=== PATIENT | female | born 1980 | race Caucasian/White ===

== ENCOUNTER → 2018-02-14 | Outpatient (CLI) | payer BC | END | disposition home or self-care (01) | LOC: CFH 10:50 | PROVIDERS: ATTEND Surgery | DX: Z12.31 Encounter for screening mammogram for malignant neoplasm of breast (principal) | CPT/HCPCS: 77067 ==

== ENCOUNTER → 2019-02-17 | Outpatient (CLI) | payer BC | END | disposition home or self-care (01) | LOC: CFH 07:30 | PROVIDERS: ATTEND Surgery | DX: Z12.31 Encounter for screening mammogram for malignant neoplasm of breast (principal) | CPT/HCPCS: 77063; 77067 ==

== ENCOUNTER → 2019-09-08 | Outpatient (CLI) | payer BC ==
[~2019-09-08] MED LIST: GADOTERATE 5 MMOL/10 ML VIAL ONE
== END | disposition home or self-care (01) ==
LOC: CFH 14:26
PROVIDERS: ATTEND Surgery
DX: N63.11 Unspecified lump in the right breast, upper outer quadrant (principal); E03.9 Hypothyroidism, unspecified; I10 Essential (primary) hypertension
CPT/HCPCS: 77049; A9575; C8908

== ENCOUNTER → 2019-10-17 | Outpatient (CLI) | payer BC | END | disposition home or self-care (01) | LOC: CFH 15:08 | PROVIDERS: ATTEND Surgery | DX: N63.11 Unspecified lump in the right breast, upper outer quadrant (principal); N60.01 Solitary cyst of right breast; Z85.850 Personal history of malignant neoplasm of thyroid; Z85.3 Personal history of malignant neoplasm of breast | CPT/HCPCS: 76642 ==

== ENCOUNTER → 2019-12-11 | Outpatient (CLI) | payer BC ==
[~2019-12-11] MED LIST changes: -GADOTERATE 5 MMOL/10 ML VIAL ONE; +LIDOCAINE 1%, 20ML ONE; +LIDOCAINE 1%-EPI 1:100K, 20ML ONE; +SODIUM BICARBONATE 4.2%, 5ML ONE
== END | disposition home or self-care (01) ==
LOC: CFH 10:37
PROVIDERS: ATTEND Surgery
DX: N63.11 Unspecified lump in the right breast, upper outer quadrant (principal); D24.1 Benign neoplasm of right breast
CPT/HCPCS: 19083; 88305; J3490

== ENCOUNTER 2020-03-10 13:43 | Outpatient (CLI) | payer BC | END 2020-03-10 23:59 | disposition home or self-care (01) | LOC: CFH 13:43 | PROVIDERS: ATTEND Surgery | DX: D24.1 Benign neoplasm of right breast (principal); R92.8 Other abnormal and inconclusive findings on diagnostic imaging of breast; Z85.850 Personal history of malignant neoplasm of thyroid | CPT/HCPCS: 76642; 77066 ==

== ENCOUNTER 2020-04-07 14:48 | Outpatient (CLI) | payer BC ==
[2020-04-07] MEDS ORDERED: LORA10TA75 PO (15:41)
[2020-04-07] MEDS ORDERED: ATEN50TA41 PO (15:41)
[2020-04-07] MEDS ORDERED: CHOL10003 PO (15:41)
[2020-04-07] MEDS ORDERED: LEVO125T PO (15:41)
[2020-04-07] MEDS ORDERED: MULT-449 PO (15:41)
[2020-04-07] MEDS ORDERED: LEVO100T PO (15:41)
== END 2020-04-07 23:59 | disposition home or self-care (01) ==
LOC: STAR 14:48
PROVIDERS: ATTEND Surgery
DX: Z02.9 Encounter for administrative examinations, unspecified (principal)

== ENCOUNTER 2020-04-15 13:35 | Day surgery (SDC) | payer BC ==
[~2020-04-15] VITALS: Ht 180.3 cm; Wt 137.1 kg
[~2020-04-15 13:35] MED LIST changes: +ATEN50TA41 PO; +BUPIVACAINE/EPI 0.5% 1:200K ONE; +CHOL10003 PO; +LEVO100T PO; +LEVO125T PO; -LIDOCAINE 1%, 20ML ONE; -LIDOCAINE 1%-EPI 1:100K, 20ML ONE; +LORA10TA75 PO; +MULT-449 PO; -SODIUM BICARBONATE 4.2%, 5ML ONE
[2020-04-15] MEDS ORDERED: LACTATED RINGERS 1,000 ML IV SCH (13:51)
[2020-04-15] MEDS ORDERED: ACETAMINOPHEN 500 MG TABLET PO ONE (14:00)
[2020-04-15] MEDS ORDERED: CHLORHEXIDINE 15 ML UDC MM ONE (14:00)
[2020-04-15] MEDS ORDERED: SCOPOLAMINE 1MG PATCH TD STA (14:03)
[2020-04-15 14:57] LABS: HCG UR SG 1.025 (1.003-1.030)
[2020-04-15] MEDS ORDERED: MIDAZOLAM 1 MG/ML, 2ML ONE (15:20)
[2020-04-15] MEDS ORDERED: FENTANYL PF 100 MCG/2ML ONE ×2 (15:21→16:28)
[2020-04-15] MEDS ORDERED: CEFAZOLIN 1,000 MG ONE (15:25)
[2020-04-15] MEDS ORDERED: PROPOFOL 10 MG/ML, 20ML ONE (15:25)
[2020-04-15] MEDS ORDERED: LABETALOL 5MG/ML, 20ML ONE (15:25)
[2020-04-15] MEDS ORDERED: DEXAMETHASONE 4 MG/ML, 1ML ONE (15:25)
[2020-04-15] MEDS ORDERED: SUCCINYLCHOLINE 20 MG/ML, 10ML ONE (15:25)
[2020-04-15] MEDS ORDERED: ONDANSETRON 2MG/ML, 2ML ONE (15:25)
[2020-04-15] MEDS ORDERED: OXYcodone 5 MG/5 ML ORAL.SOL UDC ONE (16:28)
[2020-04-15] MEDS ORDERED: ACETAMINOPHEN 650 MG/20.3 ML UDC ONE (16:28)
[2020-04-15] MEDS ORDERED: FENTANYL PF 100 MCG/2ML IV PRN (16:30)
[2020-04-15] MEDS ORDERED: MEPERIDINE/PF 25MG/0.5ML IVPush PRN (16:30)
[2020-04-15] MEDS ORDERED: HYDROmorphone 1 MG/ML, 1ML INJ IVPush PRN (16:30)
[2020-04-15] MEDS ORDERED: LABETALOL 5MG/ML, 20ML IV PRN (16:30)
[2020-04-15] MEDS ORDERED: PROMETHAZINE 25 MG/ML, 1ML IVPush PRN (16:30)
[2020-04-15] MEDS ORDERED: hydrALAzine 20 MG/ML, 1ML IV PRN (16:30)
[2020-04-15] MEDS: OXYcodone 5 MG/5 ML ORAL.SOL UDC PO PRN ×2 (16:30→18:10)
[2020-04-15] MEDS ORDERED: ONDANSETRON 2MG/ML, 2ML IVPush PRN (16:30)
[2020-04-15] MEDS ORDERED: ACETAMINOPHEN 650 MG/20.3 ML UDC PO ONE (17:00)
== END 2020-04-15 18:30 | disposition home or self-care (01) ==
LOC: OUT 13:35
PROVIDERS: ATTEND Surgery
DX: D48.61 Neoplasm of uncertain behavior of right breast (principal); Z20.828 Contact with and (suspected) exposure to other viral communicable diseases; D24.1 Benign neoplasm of right breast; I10 Essential (primary) hypertension; K21.9 Gastro-esophageal reflux disease without esophagitis; E03.9 Hypothyroidism, unspecified; E66.01 Morbid (severe) obesity due to excess calories; Z68.41 Body mass index [BMI] 40.0-44.9, adult; Z88.9 Allergy status to unspecified drugs, medicaments and biological substances; Z85.850 Personal history of malignant neoplasm of thyroid; Z79.899 Other long term (current) drug therapy; Z72.89 Other problems related to lifestyle; Z82.49 Family history of ischemic heart disease and other diseases of the circulatory system
CPT/HCPCS: 19125; 36415; 76098; 81025; 87635; 88305; J0330; J0690; J1100; J2250; J2405; J2704; J3010; J7120

== ENCOUNTER 2020-10-04 12:40 | Outpatient (CLI) | payer BC, OTHER ==
[~2020-10-04 12:40] MED LIST changes: -BUPIVACAINE/EPI 0.5% 1:200K ONE
== END 2020-10-04 23:59 | disposition home or self-care (01) ==
LOC: CFH 12:40
PROVIDERS: ATTEND Surgery
DX: Z02.9 Encounter for administrative examinations, unspecified (principal)

== ENCOUNTER 2020-11-22 12:33 | Outpatient (CLI) | payer OTHER | END 2020-11-22 23:59 | disposition home or self-care (01) | LOC: CFH 12:33 | PROVIDERS: ATTEND Surgery | DX: N63.14 Unspecified lump in the right breast, lower inner quadrant (principal); N63.23 Unspecified lump in the left breast, lower outer quadrant; N60.01 Solitary cyst of right breast; Z86.018 Personal history of other benign neoplasm | CPT/HCPCS: 76641 ==

== ENCOUNTER → 2021-03-14 | Outpatient (CLI) | payer OTHER | END | disposition home or self-care (01) | LOC: CFH 10:38 | PROVIDERS: ATTEND Surgery | DX: Z12.31 Encounter for screening mammogram for malignant neoplasm of breast (principal) | CPT/HCPCS: 77063; 77067 ==